=== PATIENT | female | born 1990 | race African-American/Black ===

== ENCOUNTER → 2016-11-22 | Outpatient (CLI) | payer BC ==
[~2016-11-22] MED LIST: PRISTIQ100 MG PO
--- NOTE | ~2016-11-22 | CO ---
Unit #: [id number] #: [id number] Patient: ADDISON FRENCH [id number] [address] [place], [place] [address] [id number] O MR#: [id number] NAME: ADDISON FRENCH ROOM: Age: 26 Sex: F Admission Date: 11/22/2016 : 1990 Attending Physician: Ashok Villa M.D. Primary Care Physician: Kaela Hobbs M.D. Consultation Date: 11/22/2016 CONSULTATION REPORT REASON FOR CONSULTATION Pre ECT medical evaluation prior to ECT procedure to be scheduled by Dr. Ashok Villa. HISTORY OF PRESENT ILLNESS The patient is a 26-year-old -[place] female who presents to preprocedural screening for the reasons indicated above. Per review of Dr. Villa's progress report dated October 10, 2016, the patient has a history of schizophrenia and depression. She has been experiencing decreased interest in activities, loss of energy, poor sleep, decreased focus and concentration, and feelings of guilt. She denies chest pain, pressure, arm, neck, jaw pain or pressure. Denies dyspnea on exertion, paroxysmal nocturnal dyspnea, and orthopnea. Denies palpitations, lightheadedness, dizziness, presyncope, and syncope. She denies history of myocardial infarction, congestive heart failure, CVA, TIA, diabetes, or kidney disease. PAST MEDICAL HISTORY 1. Depression without history of suicidal ideation or homicidal ideation. 2. Schizoaffective disorder with auditory and tactile hallucinations. 3. Menorrhagia. 4. Mild anemia with a history of iron transfusions. 5. History of mitral valve prolapse. 6. History of childhood asthma. 7. History of microscopic hematuria. 8. Seasonal allergic rhinitis. 9. History of migraines. PAST SURGICAL HISTORY Right cervical lymph node biopsy and hernia repair at 7 years of age. The patient denies a personal and family history of complications to anesthesia. ALLERGIES Blueberries and tree nuts. CURRENT MEDICATIONS Pristiq 100 mg p.o. at bedtime. SOCIAL HISTORY Denies ETOH, tobacco use, and illicit drug use. 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 Unit #: [id number] #: [id number] Patient: ADDISON FRENCH FAMILY HISTORY Father with diabetes mellitus. Mother with dependent edema of both lower extremities. Brother with intermittent boils on legs and sister with diabetes. REVIEW OF SYSTEMS "Not feeling too good about myself right now." No suicidal plan because of concern over the well being of her parents and her belief that they would blame themselves for the event. Nasal congestion, nausea secondary to taking a decreased dose of Pristiq which she states she did without physician supervision. She does not like to take medications because she does not believe in taking drugs. Does not take iron for anemia because it will cause constipation and she has an issue with that intermittently. A 10-point review of systems was conducted and negative except as indicated under history of present illness above. PHYSICAL EXAMINATION GENERAL: A 26-year-old -[place] female, awake and alert in no acute distress. VITAL SIGNS: Temperature 98.3, heart rate 64, respiratory rate 16, blood pressure 90/68, oxygen saturation 100% on room air. HEENT: Atraumatic, normocephalic. Sclerae anicteric. No discharge from eyes, ears, or nares. LYMPHATIC: No preauricular, postauricular, tonsillar, submental, anterior, posterior, cervical, supra or infraclavicular adenopathy. ENDOCRINE: No thyromegaly, thyroid nodules or tenderness. RESPIRATORY: Clear to auscultation in all farley bilaterally without wheezes, rhonchi, or rales. CARDIOVASCULAR: S1, S2. Regular rate and rhythm without murmur or rub. GASTROINTESTINAL: Bowel sounds positive x4. Soft, nontender, nondistended. EXTREMITIES: No edema, cyanosis, or clubbing. MUSCULOSKELETAL: Strength 5/5 all extremities bilaterally to flexion/extension. NEUROLOGIC: Alert and oriented x3. Speech clear. Strength 5/5 all extremities bilaterally to flexion and extension. Hand grasp 2+ and equal bilaterally. DIAGNOSTIC STUDIES LABORATORY: WBC 5.6, hemoglobin 11.5, hematocrit 35.3, platelet count 290,000. Sodium 136, potassium 3.6, chloride 107, CO2 of 27, glucose 87, BUN 8, creatinine 0.6, calcium 8.5. AST 22, ALT 13, alkaline phosphatase 76, bilirubin total 0.3, total protein 7.9, albumin 4. Urinalysis: Leukocyte esterase 1+, blood 2+, WBC 5-10, bacteria 1+, UHYALS 2.5, squamous cells few. Urine culture and sensitivity pending at this time. TSH 0.75. CARDIOVASCULAR: A 12-lead EKG: Tracing reviewed by me. Normal sinus rhythm. Normal ECG. Confirmed report pending at this time. IMPRESSION The patient is a 26-year-old -[place] female who presents to preprocedural screening for: 1. Pre electroconvulsive therapy medical evaluation: The patient's Chadwick Revised Cardiac Risk Index is equal to 0.4%. If the patient were undergoing a surgical procedure which did not involve the chest or the abdomen, this represent her perioperative risk of cardiac Unit #: [id number] #: [id number] Patient: ADDISON FRENCH , fatal or nonfatal myocardial infarction, cardiopulmonary arrest, arrhythmia and/or pulmonary edema. This has been discussed in detail with the patient and she wishes to proceed with the electroconvulsive therapy once rescheduled with Dr. Villa. 2. Mild anemia: The patient's hemoglobin and hematocrit appears to be stable at this time. The patient is asymptomatic. The patient does not want to take an iron supplement due to constipation side effects. 3. History of menorrhagia: The patient tells me she is not having this issue today. She has been advised to follow up with her primary care physician or her certified fraud examiner or further evaluation and management. She has verbalized understanding of this information. 4. Questionable urinary tract infection: Asymptomatic. Urine culture and sensitivity is pending at this time. If positive for infection, will contact patient, call in prescriptions based on culture and sensitivity report. 5. Major depression with suicidal ideation and no plan. The patient states that suicide would be very hurtful to her parents and therefore, she will not do this. Again, she denies homicidal ideation. 6. History of mitral valve prolapse. 7. History of childhood asthma. 8. History of microscopic hematuria. 9. Schizoaffective disorder with auditory and tactile hallucinations. The patient is stable at the time of this interview with neither hallucinations present at this time. 10. Seasonal allergic rhinitis: Stable. 11. History of migraine headaches: Stable. Thank you for allowing us to participate in the care of this patient. Further marycruz-ECT orders will be given by Dr. Villa. Dictated by... Chante Kingston, M.D. RLC/ch TD: 11/23/2016 15:43 JOB #: [id number] CONSULTATION REPORT X Mi Thomas APRN CONSULTATION REPORT
--- NOTE | ~2016-11-22 | EKG ---
PATIENT: ADDISON FRENCH UNIT #: [id number] Ventricular Rate: 61 BPM Atrial Rate: 61 BPM P-R Interval: 160 ms QRS Duration: 74 ms Q-T Interval: 382 ms QTC Calculation(Bezet): 384 ms P Malone: 63 degrees Calculated R Malone: 65 degrees Calculated T Malone: 59 degrees Diagnosis Line: Normal sinus rhythm Diagnosis Line: Normal ECG Diagnosis Line: No previous ECGs available Diagnosis Line: Confirmed by REBEL FAIRCHILD MD ([id number]) on Diagnosis Line: 11/24/2016 11:59:27 PM INTERPRETING MD: DEVORAH JOHNSON
[2016-11-22 12:46] LABS: HEMATOCRIT 35.3 % (35.0-45.0); HEMOGLOBIN 11.5 gm/dL (12.0-16.0); MEAN CELL VOLUME 84.9 FL (83-96); MEAN CORPUSCULAR HEMOGLOBIN 27.7 PG (28-34); MEAN CORPUSCULAR HGB CONC 32.6 g/dL (30-36); MEAN PLATELET VOLUME 6.7 FL (6.5-11.5); RED BLOOD COUNT 4.15 X10e (3.90-5.30); RED CELL DISTRIBUTION WIDTH 13.7 % (11.0-15.5); WHITE BLOOD COUNT 5.6 X10e3 (4.0-10.5)
[2016-11-22 13:19] LABS: ALKALINE PHOSPHATASE 76 U/L (32-92); ALT (SGPT) 13 U/L (10-40); AST (SGOT) 22 U/L (10-42); BILIRUBIN,TOTAL 0.3 mg/dL (0.2-2.0); BLOOD UREA NITROGEN 8 mg/dL (9-23); BUN/CREATININE RATIO 13.33; CALCIUM SERUM 8.7 mg/dL (8.4-10.2); CARBON DIOXIDE 27 mmol/L (22-31); CHLORIDE 107 mmol/L (100-111); CREATININE SERUM 0.6 mg/dL (0.6-1.4); GLOM FILT RATE Estimated ABOVE60 mL/min (>60); GLUCOSE FASTING 87 mg/dL (70-110); POTASSIUM 3.6 mmol/L (3.5-5.1); PROTEIN TOTAL SERUM 7.9 g/dL (6.0-8.3); SODIUM 136 mmol/L (135-145)
[2016-11-22 13:33] LABS: URINE APPEARANCE CLOUDY; URINE BILIRUBIN NEG (NEG); URINE BLOOD 2+ (NEG); URINE COLOR YELLOW; URINE GLUCOSE NEG (NEG); URINE KETONE NEG (NEG); URINE LEUKOCYTE ESTERASE 1+ (NEG); URINE NITRATE NEG (NEG); URINE PH 6.5 (5-8); URINE PROTEIN NEG (NEG); URINE SPECIFIC GRAVITY 1.024 (1.003-1.035); URINE UROBILINOGEN 0.2 MG/DL (NEG)
[2016-11-22 13:36] LABS: URINE BACTERIA AUWI 1+ (NEGATIVE); URINE SQUAMOUS EPITHELIAL CELL FEW /[HPF]
[2016-11-22 13:44] LABS: URINE SOURCE CLEAN CATCH
== END | disposition home or self-care (01) ==
LOC: CAMB 12:13
PROVIDERS: Psychiatry & Neurology Psychiatry
DX: Z01.818 Encounter for other preprocedural examination (principal); F33.2 Major depressive disorder, recurrent severe without psychotic features
CPT/HCPCS: 36415; 80053; 81003; 84443; 85027; 87086; 93005